=== PATIENT | male | born 1960 | race Caucasian/White ===

== ENCOUNTER 2023-07-23 11:54 | Outpatient (REF) | payer OTHER, SELFPAY ==
--- NOTE | ~2023-07-23 | XR_ITS ---
EXAMINATION: XR KNEE, RIGHT XR FOOT, RIGHT CLINICAL INFORMATION: Right knee pain. Right 3rd toe pain. COMPARISON: None available. TECHNIQUE: AP, tunnel, lateral, and sunrise views of the right knee. AP, oblique, and lateral views of the right foot. FINDINGS: RIGHT KNEE: Moderate medial compartment joint space narrowing. Tricompartmental marginal osteophytes. No acute fracture or dislocation. No concerning lytic or blastic osseous lesion. Tricompartmental chondrocalcinosis. Trace joint effusion. RIGHT FOOT: No displaced fracture. Evaluation of the 3rd toe somewhat limited due to patient positioning. No dislocation. No concerning lytic or blastic osseous lesion. Mild joint space narrowing with small marginal osteophytes at the 1st metatarsophalangeal joint and hallux sesamoids. Plantar calcaneal spur. XR/XR knee RT 4V IMPRESSION: RIGHT KNEE: 1. Moderate medial as well as mild patellofemoral and lateral compartment osteoarthritis. 2. Tricompartmental chondrocalcinosis. Trace joint effusion. RIGHT FOOT: No acute fracture or dislocation. Mild 1st metatarsophalangeal and hallux sesamoid osteoarthritis. Plantar calcaneal spur.
--- NOTE | ~2023-07-23 | US_ITS ---
EXAMINATION: RIGHT LOWER EXTREMITY DEEP VENOUS ULTRASOUND CLINICAL INFORMATION: Right leg pain COMPARISON: None. TECHNIQUE: Duplex Doppler imaging with compression maneuvers were performed of the right lower extremity deep venous system. FINDINGS: The visualized common femoral, femoral and popliteal veins demonstrate normal compressibility and color flow without evidence of venous thrombosis. Visualized portions of the calf veins demonstrate normal color fill-in suggesting patency. There is no evidence of a Flores's cyst. US/US venous duplex LE RT IMPRESSION: No evidence of deep venous thrombosis involving the right lower extremity.
--- NOTE | ~2023-07-23 | XR_ITS ---
EXAMINATION: XR KNEE, RIGHT XR FOOT, RIGHT CLINICAL INFORMATION: Right knee pain. Right 3rd toe pain. COMPARISON: None available. TECHNIQUE: AP, tunnel, lateral, and sunrise views of the right knee. AP, oblique, and lateral views of the right foot. FINDINGS: RIGHT KNEE: Moderate medial compartment joint space narrowing. Tricompartmental marginal osteophytes. No acute fracture or dislocation. No concerning lytic or blastic osseous lesion. Tricompartmental chondrocalcinosis. Trace joint effusion. RIGHT FOOT: No displaced fracture. Evaluation of the 3rd toe somewhat limited due to patient positioning. No dislocation. No concerning lytic or blastic osseous lesion. Mild joint space narrowing with small marginal osteophytes at the 1st metatarsophalangeal joint and hallux sesamoids. Plantar calcaneal spur. XR/XR foot RT min 3V IMPRESSION: RIGHT KNEE: 1. Moderate medial as well as mild patellofemoral and lateral compartment osteoarthritis. 2. Tricompartmental chondrocalcinosis. Trace joint effusion. RIGHT FOOT: No acute fracture or dislocation. Mild 1st metatarsophalangeal and hallux sesamoid osteoarthritis. Plantar calcaneal spur.
== END 2023-07-23 11:55 | disposition home or self-care (01) ==
LOC: HO.US 11:54
PROVIDERS: PCP Internal Medicine; Visit Provider Internal Medicine
DX: M79.604 Pain in right leg (principal); M25.561 Pain in right knee
CPT/HCPCS: 73564; 73630; 93971

== ENCOUNTER 2025-01-27 09:30 | Outpatient (AMB) | payer OTHER, SELFPAY ==
--- NOTE | 2025-01-27 09:37 | A.OFFPC_ITS ---
Vital Signs 01/27/25 09:50 Height 6 ft 2 in Weight 260 lb BMI 33.4 BP 128/80 Blood Pressure Location Lt brachial Position Sitting Pulse 58 Pulse Source Pulse Oximeter Temp 97.5 F Temp Source Temporal Artery Scan Pulse Oximetry (%) 99 Oxygen Delivery Method Room Air Intake Visit Reasons: Routine Bmet Required: No Accompanied by: Self / Same As Patient Allergies No Known Allergies Allergy (Verified 01/27/25 09:53) Tobacco use date assessed: 01/27/25 Fall risk assessment: No Falls in past year Last assessed Fall Risk: 01/27/25 Dental Screening Dental Screen Date: 01/27/25 Did you have a dental visit in the last 12 months?: No Did you have a dental problem in the last 6 months where you did not have access to dental care?: No [facility] Medical History (Updated 01/27/25 @ 10:19 by Ze López MD) Atrial fibrillation Diabetes mellitus Family History (Updated 01/27/25 @ 09:59 by Ximena Pink CMA) Mother No problems noted. Father Gout Prostate CA BP (high blood pressure) Social History (Updated 01/27/25 @ 10:00 by Ximena Pink CMA) Housing: House Alcohol intake: current Alcohol intake frequency: a few times a week Patient Tobacco Use Status: Never used Tobacco service: No Current occupational status: employed Cognitive needs: No Hearing needs: No Vision needs: No Questionnaire PHQ-9 Over the last 2 weeks, how often have you been bothered by any of the following problems? 1. Little interest or pleasure in doing things: not at all 2. Feeling down, depressed, or hopeless: not at all 3. Trouble falling or staying asleep, or sleeping too much: not at all 4. Feeling tired or having little energy: not at all 5. Poor appetite or overeating: not at all 6. Feeling bad about yourself - or that you are a failure or have let yourself or your family down: not at all 7. Trouble concentrating on things, such as reading the newspaper or watching television: not at all 8. Moving or speaking so slowly that other people could have noticed. Or the opposite - being so fidgety or restless that you have been moving around a lot more than usual: not at all 9. Thoughts that you would be better off or of hurting yourself in some way: not at all Total score: 0 Source: Developed by Drs. Tuan Delacruz, Munira Lane, Freddy Baig and colleagues, with an educational ashlee from [employer]. Thrive Questionnaire Date Thrive assessed: 01/27/25 I am a: Patient What is your living situation today?: I have a steady place to live Within the past 12 months, did the food you bought not last and you didn't have the money to get more?: Never true Within the past 12 months, did you worry whether your food would run out before you got money to buy more?: Never true Do you have trouble paying for medicines?: No Do you have trouble getting transportation to medical appointments?: No Do you have trouble paying your heating and electricity bill?: No Do you have trouble taking care of your child, family member or friend?: No Do you have trouble with day-to-day activities such as bathing, preparing meals, shopping, managing finances, etc.?: No Are you currently unemployed and looking for a job?: No Are you interested in more education?: No Please select the resources that you would like help with: None THRIVE Score: 0 AUDIT C Alcohol Use Questionnaire (AUDIT-C) 1. How often do you have a drink containing alcohol?: 2-3 times a week 2. How many drinks containing alcohol do you have on a typical day when you are drinking?: 1 or 2 3. How often do you have six or more drinks on one occasion?: Never Total Score: 3 ROSARIO-7 AMB Questionnaire ROSARIO-7 Date ROSARIO - 7 assessed: 01/27/25 Feeling nervous, anxious, or on edge: 0 = Not at all Not being able to stop or control worryin = Not at all Worrying too much about different things: 0 = Not at all Trouble relaxin = Not at all Being so restless that it is hard to sit still: 0 = Not at all Becoming easily annoyed or irritable: 0 = Not at all Feeling afraid as if something awful might happen: 0 = Not at all Total ROSARIO-7 score (0-4 normal; 5-9 mild; 10-14 moderate; 15-21 severe): 0 Source: Developed by Drs. Tuan Delacruz, Munira Lane, Freddy Baig and colleagues, with an educational ashlee from [employer]. Physical exam (Primary Care) Vital Signs: Last Vital Signs Temp 97.5 F 01/27/25 09:50 Pulse 58 01/27/25 09:50 BP 128/80 01/27/25 09:50 Pulse Ox 99 01/27/25 09:50 Oxygen Delivery Method Room Air 01/27/25 09:50 BMI result Body Mass Index 33.4 Tobacco/Smoking Status: Tobacco use Status Tobacco use date assessed 01/27/25 01/27/25 09:40 Patient Tobacco Use Status Never used Tobacco 01/27/25 10:00 PHQ-9: PHQ-9 Score PHQ-9: Total score 0 01/27/25 10:01 Thrive Assessment: Date of Thrive Assessment Date Thrive assessed 01/27/25 01/27/25 09:40 Coding Level of Care Code New Pt Level 4 (56829) Complex EM visit Add On G2211 Diagnoses Diabetes mellitus E11.9 Atrial fibrillation I48.91 Assessment & Plan Assessment & Plan (1) Diabetes mellitus: Code(s): E11.9 - Type 2 diabetes mellitus without complications Category: Medical Plan: Increase Mounjaro to 10 mg. A1c in three months. Counselling on diet and exercise done. (2) Atrial fibrillation: Code(s): I48.91 - Unspecified atrial fibrillation Category: Medical Plan: In Sinus rhythm. COntinue Anticoagualtion. Watchman procedure scheduled. Plan History of Present Illness The patient is a 64-year-old male presenting with a request for medication adjustment and weight management. His medical history includes type 2 diabetes mellitus with prior management on metformin and Ozempic, resulting in some weight reduction. After developing allodynia, his treatment was switched to Mounjaro with plans to increase the dosage to aid further weight loss. He has a history of coronary artery disease with a significant blockage that has been evaluated but not stented due to procedural risks. Atrial fibrillation emerged in November, which has since been treated with cardioversion, leading to improved exercise tolerance and reduced shortness of breath. Currently, antic oagulation for atrial fibrillation is ongoing, but the patient is considering a Watchman procedure. Social History - Works as a chiropractor. - Engages in physical activities like skiing and dog walking. - Consumes a relatively healthy diet with limited red meat and moderate carbohydrate intake. - Reports occasionally consuming alcohol, about two beers a few times per week. Review of Systems - Cardiovascular: Reports shortness of breath with exertion, improved with increased activity post-cardioversion. - Musculoskeletal: No specific concerns were discussed. Physical Exam General: Appearance normal, both eyes and all related structures Nutritional Appearance: Obese Orientation/consciousness: Patient oriented x3 Limitations: No limitations Head: Normal to inspection Neck: Normal visual inspection Chest: Normal palpation of entire chest wall Respiratory: Short of breath with exertion Neurology: Patient oriented x3 Results - Labs: A1c approximately 7.5 from recent blood work. - Tests: Cardiac catheterization showed a 50% blockage with good flow and an 80% blockage deemed too risky for stenting. Plan For the patient's type 2 diabetes and obesity, I plan to increase Mounjaro to 10 mg for further weight management. Due to his good response to medications and recent lab work, no additional blood tests are required now. For coronary artery disease and atrial fibrillation, I will continue the anticoagulation therapy until the Watchman procedure is considered, meeting his desire to reduce medications. No additional medications are required at this time. Patient was informed and verbally consented to the use of an ambient scribe for clinic note documentation during this visit. Discussion Notes During the consultation, the patient and I discussed increasing his Mounjaro prescription to support weight management, capitalizing on positive insurance coverage. I explained Mounjaro's efficacy in promoting weight loss and glucose control. Regarding the Watchman procedure, I advised it may enable him to discontinue blood thinners, a suitable option considering his active lifestyle and previous good response to cardioversion. The patient will follow up in three months for further evaluation. Patient Instructions - Start taking Mounjaro 10 mg as prescribed, and continue monitoring for side effects. - Continue all current medications unless otherwise directed. - Follow a balanced diet and maintain your current level of physical activity. - Attend the scheduled follow-up appointment in three months. - Stay informed about the potential Watchman procedure and its benefits. Medications: New tirzepatide (Mounjaro) 10 mg (0.5 mL) subcut QWEEK 6.5 mL 1RF 90 days
[2025-01-27 09:50] VITALS: BP 128/80; PULSE 58; TEMP 36.4; O2SAT 99; BMI 33.4
--- OUTSIDE RECORDS SUMMARY | 2025-01-27 10:36 | XMS_ITS | Patient Health Record ---
Author Organization [facility] Address [address] [place] [address] REASON FOR REFERRAL No Information PLAN OF TREATMENT No Information Insurance Providers Payer Name Payer Address Payer Phone Subscriber Number Group Number Insured Name Patient Relationship to Insured Coverage Start Date Coverage End Date [facility] [address] [place] [address] [phone] [id number] Thomas Talavera Self - patient is the insured
--- OUTSIDE RECORDS SUMMARY | 2025-01-27 10:36 | XMS_ITS | Patient Health Record ---
[facility] [place] Address [address] [place] [address] Care Team Providers Care Cook Dessert Name Role Phone Naif Morgan MD Primary Care Provider Travis Parrish Unavailable [phone] Allergies Allergen (clinical drug ingredient) Drug/Non Drug Allergy documented on EMR Reaction Allergy Type Onset Date Status Adhesive rash Allergy Active Reason For Referral No Information Medications Medication SIG (Take, Route, Frequency, Duration) Notes Start Date End Date Status Piroxicam 20 MG 1 capsule with food Orally Once a day for 30 day(s) 10/08/2013 Not-Nitin ing Metoprolol Succinate Active metFORMIN HCl Active Immunizations Vaccine Route Administration Date Status Comme nts COVID-19 Pfizer BioNTech Vaccine Unknown 08/01/2021 Administered 1st 11/23/20 2nd 12/14/20 Social History Tobacco Use: Social History Observation Description Date Details (start date - stop date) Never Smoker NA - NA Tobacco Use/Smoking Question Answer Notes Are you a: nonsmoker Additional Findings: Tobacco Non-User Current no n-smoker Alcohol Screen Question Answer Notes Did you have a drink contain ing alcohol in the past year? Yes How often did you have a dri nk containing alcohol in the past year? 2 to 4 times a month (2 points) Points 2 Interpretation Negative Tobacco use other than smoking: Question Answer Notes Are you an other tobacco user? No Problems Problem Type SNOMED Code ICD Code Onset Dates Problem Status W/U Status Risk Notes Problem Acquired hammer toe of right foot (5641373763382013) Other hammer toe(s) (acquired), right foot (M20.41) Active confirmed Problem [id number] Arthritis of foot, right (M19.071) Active confirmed Plan Of Treatment Pending Test Test Name Order Date X ray : Foot, right 2V 10/08/2013 X ray : Foot, right 3V 05/24/2022 54214, [id number]/INJECT, JOINT/BURSA 0 03/01/2023 Insurance Providers Payer Name Payer Address Payer Phone Subscriber Number Group Number Insured Name Patient Relationship to Insured Coverage Start Date Coverage End Date [facility] [address] [place] [address] [id number] Thomas Talavera Self - patient is the insured Medical (General) History Medical History History ICD Code osteoarthritis Plantar Fasciitis 728.71 Myositis 729.1 Bursitis 727.3 Pain in Limb 729.5 Joint implants/screws Surgical History Surgery Date(Month/Year) left shoulder 1980 right knee 1994 right knee 2003 shoulder sx 2012 colonoscopy 02/2023
--- OUTSIDE RECORDS SUMMARY | 2025-01-27 10:36 | XMS_ITS ---
Author Organization [facility] Address [address] [place] [address] Care Team Providers Care Material Damage Adjuster Name Role Phone RONIT TREVIÑO Unavailable [phone] Encounters Encounter Location Date Provider Diagnosis [facility] [address] [facility] [address] [place] [address] 01/23/2024 RONIT TREVIÑO PLAN OF TREATMENT No Information Progress Notes * Thomas TALAVERADOB:[birth year] (64 yo M)Acc No.[id number]:01/23/2024 Patient:??Thomas TALAVERA Provider:??RONIT TREVIÑO NP :1960?Age:63 Y?Sex:Ma le Date:01/23/2024 Address:[address] [place] [address] Subjective: * Chief Complaints: * ? * Medical History:?? Objective: Assessment: Plan: * Treatment: * Images: Billing Information: * Visit Code:?? * Procedure Codes:?? * Sign off status: Pending * Provider:??RONIT TREVIOÑ NP Date:??01/03
== END 2025-01-27 10:19 | disposition home or self-care (01) ==
LOC: HO.HMCHD 09:30
PROVIDERS: PCP Internal Medicine; Visit Provider Internal Medicine
DX: E11.9 Type 2 diabetes mellitus without complications (principal); I48.91 Unspecified atrial fibrillation

== ENCOUNTER → 2025-01-27 09:30 | Outpatient (BNVA) | payer OTHER, SELFPAY | PROVIDERS: PCP Internal Medicine; Visit Provider Internal Medicine ==